=== PATIENT | female | born 1995 | race Hispanic/Latino ===

== ENCOUNTER 2016-09-28 21:59 | Emergency (ER) | payer OTHER ==
[~2016-09-28] VITALS: Ht 154.9 cm; Wt 80.0 kg
[~2016-09-28 21:59] MED LIST: ALBUTERO1 IN; ALBUTEROL0.083 % IN; AMOXICILLIN500 MG OR; AMOXICILLIN500 MG PO; BENADRYL25 M1 OR; FERROUS SULF325 M1 PO; NAPROSYN500 MG PO; PRENATA3 OR; ROBITUSS11 OR; TUSSIN DM1 M1 OR; TYLENOL325 MG OR; ULTRAM50 M1 PO; ZITHROMAX250 MG OR
[2016-09-28 23:36] LABS: HEMATOCRIT 38.5 % (37.0-47.0); HEMOGLOBIN 13.1 g/dl (12.0-16.0); IMMATURE GRANULOCYTES 0.3 % (0.0-1.0); MEAN CELL VOLUME 87.3 fL CALC (80.0-100.0); MEAN CORPUSCULAR HGB 29.7 pG CALC (26.0-32.0); NEUT# 4.22 thou/uL (2.00-7.15); RED BLOOD COUNT 4.41 mill/uL (4.20-5.60); RED CELL DISTRI WIDTH 12.4 % (11.5-15.5)
[2016-09-28 23:57] LABS: ALBUMIN 4.5 g/dL (3.2-5.0); ALKALINE PHOSPHATASE 83 u/l (38-126); ANION GAP 14 (6-22 (CALC)); BILIRUBIN, TOTAL 0.7 mg/dL (0.0-1.4); BUN 11 mg/dL (7-17); BUN/CREATININE RATIO 20 (12-20 (CALC)); CALCIUM 9.3 mg/dL (8.4-10.2); CARBON DIOXIDE 25 mmol/l (22-30); CHLORIDE 105 mmol/l (95-108); CREATININE 0.6 mg/dL (0.5-1.0); GFR > 60 ML/MIN (>=60 (CALC)); GFR FOR AFR.AMER. > 60 ML/MIN (>=60 (CALC)); GLUCOSE 77 mg/dL (65-105); POTASSIUM 4.2 mmol/l (3.5-5.1); SGOT/AST 34 u/l (14-36); SGPT/ALT 38 u/l (9-52); SODIUM 140 mmol/l (137-146); TOTAL PROTEIN 7.6 g/dL (6.3-8.2)
[2016-09-29 00:04] LABS: URINE BILIRUBIN - DIPSTICK NEGATIVE (NEGATIVE); URINE BLOOD DIPSTICK TRACE-INTACT (NEGATIVE); URINE CLARITY CLEAR; URINE COLOR YELLOW; URINE GLUCOSE - DIPSTICK NEGATIVE (NEGATIVE); URINE KETONE NEGATIVE (NEGATIVE); URINE LEUK ESTERASE NEGATIVE (NEGATIVE); URINE NITRITE - DIPSTICK NEGATIVE (Negative); URINE PH 5.5 (4.5-8.0); URINE PROTEIN - DIPSTICK NEGATIVE (NEG-TRACE); URINE SPECIFIC GRAVITY 1.025; URINE UROBILINOGEN - DIPSTICK 0.2 E.U./dL (0.2)
[2016-09-29 01:35] LABS: AMYLASE 45 u/l (30-110); LIPASE 55 u/l (23-300)
[2016-09-29] MEDS ORDERED: PERCOCET 5/325M1 TAB PO (02:17)
[2016-09-29 02:36] VITALS: BP 104/57
== END 2016-09-29 02:36 | disposition home or self-care (01) | DRG 552 ==
LOC: ED 21:59
PROVIDERS: Emergency Medicine
DX: S16.1XXA Strain of muscle, fascia and tendon at neck level, initial encounter (principal); M54.5 Low back pain; R10.32 Left lower quadrant pain; R10.31 Right lower quadrant pain

== ENCOUNTER 2016-11-05 15:22 | Emergency (ER) | payer OTHER ==
[~2016-11-05] VITALS: Ht 154.9 cm; Wt 65.0 kg
[~2016-11-05 15:22] MED LIST changes: +PERCOCET 5/325M1 TAB PO
[2016-11-05 16:02] LABS: HEMATOCRIT 40.3 % (37.0-47.0); HEMOGLOBIN 13.6 g/dl (12.0-16.0); IMMATURE GRANULOCYTES 0.4 % (0.0-1.0); MEAN CELL VOLUME 88.2 fL CALC (80.0-100.0); MEAN CORPUSCULAR HGB 29.8 pG CALC (26.0-32.0); MEAN CORPUSCULAR HGB CONC 33.7 g/L CALC (32.0-36.0); NEUT# 5.21 thou/uL (2.00-7.15); RED BLOOD COUNT 4.57 mill/uL (4.20-5.60); RED CELL DISTRI WIDTH 12.3 % (11.5-15.5)
[2016-11-05 16:15] LABS: ALBUMIN 4.4 g/dL (3.2-5.0); ALKALINE PHOSPHATASE 77 u/l (38-126); ANION GAP 16 (6-22 (CALC)); BILIRUBIN, TOTAL 0.6 mg/dL (0.0-1.4); BUN 8 mg/dL (7-17); BUN/CREATININE RATIO 14 (12-20 (CALC)); CALCIUM 9.2 mg/dL (8.4-10.2); CARBON DIOXIDE 25 mmol/l (22-30); CHLORIDE 105 mmol/l (95-108); CREATININE 0.6 mg/dL (0.5-1.0); GFR > 60 ML/MIN (>=60 (CALC)); GFR FOR AFR.AMER. > 60 ML/MIN (>=60 (CALC)); GLUCOSE 80 mg/dL (65-105); SGOT/AST 27 u/l (14-36); SGPT/ALT 32 u/l (9-52); SODIUM 142 mmol/l (137-146); TOTAL PROTEIN 7.9 g/dL (6.3-8.2)
[2016-11-05 16:27] LABS: MYOGLOBIN 18 ng/mL (0 - 62)
[2016-11-05] MEDS ORDERED: MOTRIN800 MG PO (17:18)
[2016-11-05 17:22] VITALS: BP 105/55
== END 2016-11-05 17:34 | disposition home or self-care (01) | DRG 313 ==
LOC: ED 15:22
PROVIDERS: Emergency Medicine
DX: R07.89 Other chest pain (principal)

== ENCOUNTER 2017-04-20 21:34 | Emergency (ER) | payer OTHER ==
[~2017-04-20] VITALS: Ht 154.9 cm; Wt 89.0 kg
[~2017-04-20 21:34] MED LIST changes: +MOTRIN800 MG PO
[2017-04-21] MEDS ORDERED: NAPROSYN500 MG PO (00:03)
[2017-04-21] MEDS ORDERED: FLEXERIL PO (00:03)
[2017-04-21 00:10] VITALS: BP 120/70
== END 2017-04-21 00:25 | disposition home or self-care (01) | DRG 552 ==
LOC: ED 21:34
DX: S16.1XXA Strain of muscle, fascia and tendon at neck level, initial encounter (principal); S39.012A Strain of muscle, fascia and tendon of lower back, initial encounter; V49.50XA Passenger injured in collision with unspecified motor vehicles in traffic accident, initial encounter

== ENCOUNTER 2017-10-22 14:13 | Emergency (ER) | payer OTHER ==
[~2017-10-22] VITALS: Ht 154.9 cm; Wt 100.0 kg
[~2017-10-22 14:13] MED LIST changes: +FLEXERIL PO
[2017-10-22] MEDS ORDERED: PROAIR HFA108 MCG/AC IN (14:22)
[2017-10-22 15:09] VITALS: BP 143/101
[2017-10-22] MEDS ORDERED: MOTRIN800 MG PO (15:13)
== END 2017-10-22 15:18 | disposition home or self-care (01) | DRG 552 ==
LOC: ED 14:13
DX: S16.1XXA Strain of muscle, fascia and tendon at neck level, initial encounter (principal); V43.02XA Car driver injured in collision with other type car in nontraffic accident, initial encounter

== ENCOUNTER 2018-03-01 07:49 | Emergency (ER) | payer SELFPAY ==
[~2018-03-01] VITALS: Ht 154.9 cm; Wt 85.0 kg
[~2018-03-01 07:49] MED LIST changes: +PROAIR HFA108 MCG/AC IN
[2018-03-01 08:26] LABS: HEMATOCRIT 39.7 % (37.0-47.0); HEMOGLOBIN 13.6 g/dl (12.0-16.0); IMMATURE GRANULOCYTES 0.4 % (0.0-5.0); MEAN CELL VOLUME 87.3 fL CALC (80.0-100.0); MEAN CORPUSCULAR HGB 29.9 pG CALC (26.0-32.0); MEAN CORPUSCULAR HGB CONC 34.3 g/L CALC (32.0-36.0); NEUT# 4.53 thou/uL (2.00-7.15); RED BLOOD COUNT 4.55 mill/uL (4.20-5.60); RED CELL DISTRI WIDTH 12.5 % (11.5-15.5)
[2018-03-01 08:29] LABS: URINE BILIRUBIN - DIPSTICK NEGATIVE (NEGATIVE); URINE BLOOD DIPSTICK NEGATIVE (NEGATIVE); URINE COLOR YELLOW; URINE GLUCOSE - DIPSTICK NEGATIVE (NEGATIVE); URINE KETONE NEGATIVE (NEGATIVE); URINE LEUK ESTERASE NEGATIVE (NEGATIVE); URINE NITRITE - DIPSTICK NEGATIVE (Negative); URINE PROTEIN - DIPSTICK NEGATIVE (NEG-TRACE); URINE SPECIFIC GRAVITY >=1.030; URINE UROBILINOGEN - DIPSTICK 0.2 E.U./dL (0.2)
[2018-03-01 08:30] LABS: URINE CLARITY CLEAR
[2018-03-01 08:46] LABS: ALBUMIN 4.2 g/dL (3.2-5.0); ALKALINE PHOSPHATASE 88 u/l (38-126); ANION GAP 15 (6-22 (CALC)); BILIRUBIN, TOTAL 0.4 mg/dL (0.0-1.4); BUN 13 mg/dL (7-17); BUN/CREATININE RATIO 22 (12-20 (CALC)); CARBON DIOXIDE 24 mmol/l (22-30); CHLORIDE 107 mmol/l (95-108); CREATININE 0.6 mg/dL (0.5-1.0); GFR > 60 ML/MIN (>=60 (CALC)); GFR FOR AFR.AMER. > 60 ML/MIN (>=60 (CALC)); LIPASE 63 u/l (23-300); POTASSIUM 4.2 mmol/l (3.5-5.1); SGOT/AST 24 u/l (14-36); SGPT/ALT 37 u/l (9-52); SODIUM 141 mmol/l (137-146); TOTAL PROTEIN 7.2 g/dL (6.3-8.2)
[2018-03-01 18:05] VITALS: BP 105/66
== END 2018-03-01 18:10 | disposition home or self-care (01) | DRG 392 ==
LOC: ED 07:49
PROVIDERS: Family Medicine
DX: K52.9 Noninfective gastroenteritis and colitis, unspecified (principal); R10.33 Periumbilical pain; R11.0 Nausea

== ENCOUNTER 2018-03-30 13:21 | Emergency (ER) | payer SELFPAY ==
[~2018-03-30] VITALS: Ht 154.9 cm; Wt 91.6 kg
[~2018-03-30 13:21] MED LIST changes: +PANTOPRAZOLE SO40 MG PO; +SUCRALFATE1 GM PO
[2018-03-30] MEDS ORDERED: PREDNISONE50 MG PO (13:39)
[2018-03-30] MEDS ORDERED: MUPIROCIN2 % EX (13:39)
[2018-03-30 14:08] VITALS: BP 129/70
== END 2018-03-30 14:08 | disposition home or self-care (01) ==
LOC: ED 13:21
DX: T65.891A Toxic effect of other specified substances, accidental (unintentional), initial encounter (principal); T22.512A Corrosion of first degree of left forearm, initial encounter; K21.9 Gastro-esophageal reflux disease without esophagitis; Y93.89 Activity, other specified; Y92.89 Other specified places as the place of occurrence of the external cause; Y99.0 Civilian activity done for income or pay

== ENCOUNTER → 2018-04-12 | Outpatient (REF) | payer SELFPAY ==
[~2018-04-12] VITALS: Ht 154.9 cm; Wt 90.7 kg
[~2018-04-12] MED LIST changes: +MUPIROCIN2 % EX; +PREDNISONE50 MG PO
[2018-04-12 13:32] VITALS: BP 101/64
== END | disposition home or self-care (01) | DRG 951 ==
LOC: ORM 09:30 → PO 09:52
PROVIDERS: ATTEND Surgery
DX: Z01.818 Encounter for other preprocedural examination (principal); K92.0 Hematemesis; K29.70 Gastritis, unspecified, without bleeding; R10.9 Unspecified abdominal pain; J45.909 Unspecified asthma, uncomplicated

== ENCOUNTER 2018-04-19 07:14 | Day surgery (SDC) | payer OTHER ==
[2018-04-19 09:28] VITALS: BP 111/66
== END 2018-04-19 09:43 | disposition home or self-care (01) ==
LOC: ENDO 07:14 → ORM 08:30 → ENDO 08:30
PROVIDERS: ATTEND Surgery
DX: K29.70 Gastritis, unspecified, without bleeding (principal); K21.9 Gastro-esophageal reflux disease without esophagitis; R10.13 Epigastric pain; R11.2 Nausea with vomiting, unspecified; K92.0 Hematemesis

== ENCOUNTER 2018-04-30 18:24 | Emergency (ER) | payer MEDICAID ==
[~2018-04-30] VITALS: Ht 154.9 cm; Wt 84.1 kg
[2018-04-30] MEDS ORDERED: IBUPROFEN600 MG PO (19:32)
[2018-04-30 19:56] VITALS: BP 127/81
== END 2018-04-30 19:56 | disposition home or self-care (01) ==
LOC: ED 18:24
DX: S83.91XA Sprain of unspecified site of right knee, initial encounter (principal); W17.89XA Other fall from one level to another, initial encounter; Y93.89 Activity, other specified; Y92.830 Public park as the place of occurrence of the external cause

== ENCOUNTER 2018-06-21 12:26 | Emergency (ER) | payer OTHER ==
[~2018-06-21] VITALS: Ht 154.9 cm; Wt 90.0 kg
[~2018-06-21 12:26] MED LIST changes: +IBUPROFEN600 MG PO
[2018-06-21 13:10] LABS: URINE BLOOD DIPSTICK MODERATE (NEGATIVE); URINE COLOR YELLOW; URINE GLUCOSE - DIPSTICK NEGATIVE (NEGATIVE); URINE KETONE TRACE mg/dL (NEGATIVE); URINE LEUK ESTERASE TRACE (NEGATIVE); URINE NITRITE - DIPSTICK NEGATIVE (Negative); URINE PROTEIN - DIPSTICK TRACE mg/dL (NEG-TRACE); URINE SPECIFIC GRAVITY 1.025
[2018-06-21 13:13] LABS: HEMATOCRIT 39.4 % (37.0-47.0); HEMOGLOBIN 13.7 g/dl (12.0-16.0); IMMATURE GRANULOCYTES 0.3 % (0.0-5.0); MEAN CELL VOLUME 85.8 fL CALC (80.0-100.0); MEAN CORPUSCULAR HGB 29.8 pG CALC (26.0-32.0); MEAN CORPUSCULAR HGB CONC 34.8 g/L CALC (32.0-36.0); NEUT# 2.29 thou/uL (2.00-7.15); RED BLOOD COUNT 4.59 mill/uL (4.20-5.60); RED CELL DISTRI WIDTH 12.4 % (11.5-15.5)
[2018-06-21 13:14] LABS: URINE BILIRUBIN - DIPSTICK SMALL (NEGATIVE); URINE EPITHELIAL CELLS FEW EPI/hpf (0-FEW); URINE WBC 0-2 WBC/hpf (0-5)
[2018-06-21 13:22] LABS: ALBUMIN 4.3 g/dL (3.2-5.0); ALKALINE PHOSPHATASE 61 u/l (38-126); ANION GAP 16 (6-22 (CALC)); BILIRUBIN, TOTAL 0.6 mg/dL (0.0-1.4); BUN 10 mg/dL (7-17); BUN/CREATININE RATIO 17 (12-20 (CALC)); CARBON DIOXIDE 26 mmol/l (22-30); CHLORIDE 102 mmol/l (95-108); CREATININE 0.6 mg/dL (0.5-1.0); GFR > 60 ML/MIN (>=60 (CALC)); GFR FOR AFR.AMER. > 60 ML/MIN (>=60 (CALC)); LIPASE 221 u/l (23-300); POTASSIUM 3.5 mmol/l (3.5-5.1); SGOT/AST 38 u/l (14-36); SODIUM 140 mmol/l (137-146); TOTAL PROTEIN 7.5 g/dL (6.3-8.2)
[2018-06-21] MEDS ORDERED: PEPCID20 MG PO (14:00)
[2018-06-21 14:06] VITALS: BP 139/84
== END 2018-06-21 14:13 | disposition home or self-care (01) ==
LOC: ED 12:26
DX: R10.13 Epigastric pain (principal); R11.2 Nausea with vomiting, unspecified
CPT/HCPCS: S0164

== ENCOUNTER → 2018-08-30 | Outpatient (REF) | payer OTHER ==
[~2018-08-30] MED LIST changes: +PEPCID20 MG PO
== END | disposition home or self-care (01) ==
LOC: DI 16:16
DX: J45.50 Severe persistent asthma, uncomplicated (principal)

== ENCOUNTER 2018-11-03 14:07 | Emergency (ER) | payer OTHER ==
[~2018-11-03] VITALS: Ht 154.9 cm; Wt 88.1 kg
[2018-11-03 14:43] LABS: HEMATOCRIT 39.9 % (37.0-47.0); HEMOGLOBIN 13.3 g/dl (12.0-16.0); IMMATURE GRANULOCYTES 0.5 % (0.0-5.0); MEAN CELL VOLUME 86.4 fL CALC (80.0-100.0); MEAN CORPUSCULAR HGB 28.8 pG CALC (26.0-32.0); MEAN CORPUSCULAR HGB CONC 33.3 g/L CALC (32.0-36.0); NEUT# 4.82 thou/uL (2.00-7.15); RED BLOOD COUNT 4.62 mill/uL (4.20-5.60); RED CELL DISTRI WIDTH 12.7 % (11.5-15.5)
[2018-11-03 14:44] LABS: URINE BLOOD DIPSTICK LARGE (NEGATIVE); URINE COLOR YELLOW; URINE GLUCOSE - DIPSTICK NEGATIVE (NEGATIVE); URINE KETONE 15 mg/dL (NEGATIVE); URINE LEUK ESTERASE NEGATIVE (NEGATIVE); URINE NITRITE - DIPSTICK NEGATIVE (Negative); URINE PROTEIN - DIPSTICK 30 mg/dL (NEG-TRACE); URINE SPECIFIC GRAVITY 1.025
[2018-11-03 14:47] LABS: URINE BILIRUBIN - DIPSTICK NEGATIVE (NEGATIVE)
[2018-11-03 14:48] LABS: URINE CALCIUM OXALATE CRYSTALS MANY lpf; URINE SQUAMOUS EPITHELIAL CELL FEW EPI/hpf (0-FEW); URINE WBC 0-2 WBC/hpf (0-5)
[2018-11-03 15:03] LABS: ALBUMIN 4.6 g/dL (3.2-5.0); ALKALINE PHOSPHATASE 79 u/l (38-126); ANION GAP 16 (6-22 (CALC)); BILIRUBIN, TOTAL 0.8 mg/dL (0.0-1.4); BUN 7 mg/dL (7-17); BUN/CREATININE RATIO 12 (12-20 (CALC)); CARBON DIOXIDE 23 mmol/l (22-30); CHLORIDE 106 mmol/l (95-108); CREATININE 0.6 mg/dL (0.5-1.0); GFR > 60 ML/MIN (>=60 (CALC)); GFR FOR AFR.AMER. > 60 ML/MIN (>=60 (CALC)); LIPASE 110 u/l (23-300); POTASSIUM 3.7 mmol/l (3.5-5.1); SGOT/AST 19 u/l (14-36); SODIUM 141 mmol/l (137-146); TOTAL PROTEIN 7.4 g/dL (6.3-8.2)
[2018-11-03 16:05] VITALS: BP 134/85
== END 2018-11-03 16:15 | disposition home or self-care (01) ==
LOC: ED 14:07
PROVIDERS: Family Medicine
DX: K92.2 Gastrointestinal hemorrhage, unspecified (principal)
CPT/HCPCS: Q9967

== ENCOUNTER 2019-04-08 14:24 | Emergency (ER) | payer OTHER ==
[~2019-04-08] VITALS: Ht 154.9 cm; Wt 90.0 kg
[2019-04-08] MEDS ORDERED: TRILEPTAL300 MG PO (15:12)
[2019-04-08] MEDS ORDERED: ADDERALL XR20 MG PO (15:12)
[2019-04-08] MEDS ORDERED: IPRATROPIU0.5 MG/3 M IN (15:13)
[2019-04-08] MEDS ORDERED: ATROVENT H17 MCG/ACT IN (15:14)
[2019-04-08 16:29] LABS: URINE BILIRUBIN - DIPSTICK NEGATIVE (NEGATIVE); URINE BLOOD DIPSTICK NEGATIVE (NEGATIVE); URINE COLOR YELLOW; URINE GLUCOSE - DIPSTICK NEGATIVE (NEGATIVE); URINE KETONE NEGATIVE (NEGATIVE); URINE LEUK ESTERASE MODERATE (NEGATIVE); URINE NITRITE - DIPSTICK NEGATIVE (Negative); URINE PROTEIN - DIPSTICK NEGATIVE (NEG-TRACE)
[2019-04-08 16:52] LABS: URINE BACTERIA FEW hpf; URINE SQUAMOUS EPITHELIAL CELL FEW EPI/hpf (0-FEW)
[2019-04-08] MEDS ORDERED: PYRIDIUM200 MG PO (17:10)
[2019-04-08] MEDS ORDERED: KEFLEX500 MG PO (17:10)
[2019-04-08] MEDS ORDERED: TRAMADOL HYDROC50 MG PO (17:10)
[2019-04-08 17:15] VITALS: BP 139/77
== END 2019-04-08 17:15 | disposition home or self-care (01) ==
LOC: ED 14:24
DX: M54.5 Low back pain (principal); N39.0 Urinary tract infection, site not specified

== ENCOUNTER 2019-05-18 18:12 | Emergency (ER) | payer OTHER ==
[~2019-05-18] VITALS: Ht 154.9 cm; Wt 81.0 kg
[~2019-05-18 18:12] MED LIST changes: +ADDERALL XR20 MG PO; +ATROVENT H17 MCG/ACT IN; +IPRATROPIU0.5 MG/3 M IN; +KEFLEX500 MG PO; +PYRIDIUM200 MG PO; +TRAMADOL HYDROC50 MG PO; +TRILEPTAL300 MG PO
[2019-05-18 19:48] LABS: URINE BILIRUBIN - DIPSTICK NEGATIVE (NEGATIVE); URINE BLOOD DIPSTICK NEGATIVE (NEGATIVE); URINE COLOR YELLOW; URINE GLUCOSE - DIPSTICK NEGATIVE (NEGATIVE); URINE KETONE NEGATIVE (NEGATIVE); URINE LEUK ESTERASE NEGATIVE (NEGATIVE); URINE NITRITE - DIPSTICK NEGATIVE (Negative); URINE PH 6.5 (4.5-8.0); URINE PROTEIN - DIPSTICK NEGATIVE (NEG-TRACE)
[2019-05-18] MEDS ORDERED: CLARITIN10 M1 PO (20:20)
[2019-05-18] MEDS ORDERED: AMOXICILLIN500 MG PO (20:20)
[2019-05-18 20:30] VITALS: BP 130/62
[2019-06-07] MEDS ORDERED: FLOVENT HF110 MCG/AC PO (10:42)
[2019-06-07] MEDS ORDERED: ATIVAN1 M1 PO (10:43)
[2019-06-07] MEDS ORDERED: BUPROPION HCL150 M1 PO (10:44)
[2019-06-07] MEDS ORDERED: MONTELUKAST SOD10 MG PO (10:45)
[2019-06-07] MEDS ORDERED: LYRICA150 MG PO (11:32)
== END 2019-05-18 20:30 | disposition home or self-care (01) ==
LOC: ED 18:12
PROVIDERS: Emergency Medicine
DX: J02.0 Streptococcal pharyngitis (principal)

== ENCOUNTER 2019-07-13 | Emergency (ER) | payer OTHER ==
[~2019-07-13] MED LIST changes: +ATIVAN1 M1 PO; +BUPROPION HCL150 M1 PO; +CLARITIN10 M1 PO; +FLOVENT HF110 MCG/AC PO; +LYRICA150 MG PO; +MONTELUKAST SOD10 MG PO
[2019-07-13] MEDS ORDERED: MOTRIN800 MG PO (14:56)
[2019-07-13] MEDS ORDERED: DOXYCYCL HYC100 MG PO (14:56)
== END 2019-07-13 15:10 | disposition home or self-care (01) ==
DX: S61.051A Open bite of right thumb without damage to nail, initial encounter (principal); S50.812A Abrasion of left forearm, initial encounter; W55.01XA Bitten by cat, initial encounter; W55.03XA Scratched by cat, initial encounter

== ENCOUNTER 2019-07-15 08:19 | Emergency (ER) | payer OTHER ==
[~2019-07-15 08:19] MED LIST changes: +DOXYCYCL HYC100 MG PO
[2019-07-15] MEDS ORDERED: AMOX/K CLAV875 M1 PO (08:34)
[2019-07-15] MEDS ORDERED: ONDANSETRON4 MG PO (08:35)
[2019-07-15 08:41] VITALS: BP 122/66
== END 2019-07-15 08:48 | disposition home or self-care (01) ==
LOC: ED 08:19
DX: S50.812A Abrasion of left forearm, initial encounter (principal); W55.03XA Scratched by cat, initial encounter; S61.451A Open bite of right hand, initial encounter; W55.01XA Bitten by cat, initial encounter

== ENCOUNTER 2024-03-07 05:52 | Emergency (ER) | payer OTHER ==
[~2024-03-07] VITALS: Ht 154.9 cm; Wt 82.6 kg
[~2024-03-07 05:52] MED LIST changes: +AMOX/K CLAV875 M1 PO; +ONDANSETRON4 MG PO
[2024-03-07 06:02] VITALS: BP 119/74
[2024-03-07] MEDS ORDERED: LOTRISONE EX (06:07)
[2024-03-07 06:09] VITALS: BP 119/74
[2024-03-07] MEDS ORDERED: DICLOFENAC SODIUM 75 MG/TAB PO ONE (06:10)
[2024-03-07] MEDS ORDERED: ACETAMINOPHEN 500 MG TAB PO ONE (06:10)
[2024-03-07 06:15] VITALS: BP 121/74
== END 2024-03-07 06:20 | disposition home or self-care (01) ==
LOC: ED 05:52
DX: T60.3X1A Toxic effect of herbicides and fungicides, accidental (unintentional), initial encounter (principal); L24.5 Irritant contact dermatitis due to other chemical products